=== PATIENT | male | born 1940 | race Caucasian/White ===

== ENCOUNTER 2017-09-07 21:42 | Observation (INO) ==
[2017-09-07] MEDS ORDERED: ONDANSETRON 4 MG/2 ML VIAL IV STA (22:26)
[2017-09-07] MEDS ORDERED: SODIUM CHLORIDE 0.9% 1,000 ML IV STA (22:26)
[2017-09-07] MEDS ORDERED: MORPHINE 4 MG/1 ML VIAL IV STA (22:26)
[2017-09-07] MEDS ORDERED: MORPHINE 4 MG/1 ML VIAL ONE (22:42)
[2017-09-07] MEDS ORDERED: ONDANSETRON 4 MG/2 ML VIAL ONE (22:42)
[2017-09-07 22:45] LABS: Basophils % 0.6 % (0.0-0.8); Eosinophils % 0.4 % (0.00-10.9); Hematocrit 31.9 VOL% (42.0-52.0); Hemoglobin 10.6 GM/DL (14.0-18.0); Immature Granulocytes % 1.2 %; Immature Granulocytes Absolute 0.06 #; Lymphocytes # 0.8 10*3/uL (1.4-4.0); Lymphocytes % 16.1 % (21.2-54.2); Mean Corpuscular HGB Conc 33.2 GM/DL (32-36); Mean Corpuscular Hemoglobin 32 PG (27-34); Mean Corpuscular Volume 97.3 FL (87-102); Mean Platelet Volume 11.4 FL (9.6-12.0); Monocytes # 0.5 10*3/uL (0.11-0.8); Monocytes % 8.9 % (1.7-12.7); Neutrophils # 3.8 10*3/uL (1.4-7.4); Neutrophils % 72.8 % (38.7-73.9); Platelet Count 224 T/CUMM (130-400); Red Blood Count 3.28 MC/CUMM (3.8-5.5); Red Cell Distribution Width 13.3 % (9.3-17.3); White Blood Count 5.2 T/CUMM (4-12)
[2017-09-07 23:09] LABS: Lactic Acid 1.9 MMOL/L (0.4-2.0)
[2017-09-07 23:16] LABS: Alanine Aminotransferase 20 U/L (16-61); Albumin 3.2 G/DL (3.4-5.0); Alkaline Phosphatase 55 U/L (45-117); Amylase 33 U/L (25-115); Aspartate Amino Transferase 21 U/L (0-37); Blood Urea Nitrogen 20 MG/DL (7-18); Calcium 8.7 MG/DL (8.5-10.1); Glucose 240 MG/DL (74-106); Potassium 3.6 MMOL/L (3.5-5.1); Sodium 136 MMOL/L (136-145); Total Protein 5.9 G/DL (6.4-8.3); Troponin I Only < 0.015 NG/ML (0.00-0.045)
[2017-09-08 00:17] LABS: Apearance,Urine CLEAR (Clear); Bilirubin,Urine Negative (Negative); Blood, Urine Negative (Negative); Glucose,Urine (UA) 50 mg/dL (Negative); Ketones,Urine Negative (Negative); Nitrite,Urine Negative (Negative); Protein,Urine Negative; RBC,Urine <1 /HPF (0-4); Urine Color Yellow (Yellow); Urine Specific Gravity 1.014 (1.001-1.035); Urine Urobilinogen < 2.0 EU/DL (0.2-1.0); WBC,Urine <1 /HPF (0-6)
[2017-09-08] MEDS ORDERED: MORPHINE 4 MG/1 ML VIAL IV STA (00:35)
[2017-09-08] MEDS ORDERED: MORPHINE 4 MG/1 ML VIAL ONE (00:38)
[2017-09-08] MEDS ORDERED: ONDANSETRON 4 MG/2 ML VIAL IV PRN (00:52)
[2017-09-08] MEDS ORDERED: BENZTROPINE 2 MG/2 ML AMP IV PRN (00:52)
[2017-09-08] MEDS ORDERED: diphenhydrAMINE CAP 25 MG CAPSULE PO PRN (00:52)
[2017-09-08] MEDS ORDERED: traMADol 50 MG TABLET PO PRN (00:52)
[2017-09-08] MEDS ORDERED: DEXTROSE 50% 25 GM/50 ML VIAL IV PRN (00:52)
[2017-09-08] MEDS ORDERED: ALUMINUM/MAGNES/SIMETH MAX STR 30 ML UDCUP PO PRN (00:52)
[2017-09-08] MEDS ORDERED: PROMETHAZINE INJ 25 MG in SODIUM CHLORIDE 0.9% 50 ML IV PRN (00:52)
[2017-09-08] MEDS ORDERED: chlorproMAZINE 25 MG TABLET PO PRN (00:52)
[2017-09-08] MEDS ORDERED: LACTULOSE 20 GM/30 ML UDCUP PO PRN (00:52)
[2017-09-08] MEDS ORDERED: MYLANTA/LIDO VISC 2:1 300 ML BOTTLE SWISH/SWAL PRN (00:52)
[2017-09-08] MEDS ORDERED: guaiFENesin 200 MG/10 ML UDCUP PO PRN (00:52)
[2017-09-08] MEDS ORDERED: MYLANTA/LIDO VISC 2:1 300 ML BOTTLE SWISH/SPIT PRN (00:52)
[2017-09-08] MEDS ORDERED: ACETAMINOPHEN 325 MG TABLET PO PRN (00:52)
[2017-09-08] MEDS ORDERED: MAGNESIUM HYDROXIDE SUSP 30 ML UDCUP PO PRN (00:52)
[2017-09-08] MEDS ORDERED: GLUCAGON 1 MG VIAL IM PRN (00:52)
[2017-09-08] MEDS ORDERED: SODIUM CHLORIDE 0.9% 1,000 ML IV SCH (01:00)
[2017-09-08 02:39] LABS: Albumin 3.1 G/DL (3.4-5.0); Bilirubin,Total 0.4 MG/DL (0.2-1.0); Calcium 8.2 MG/DL (8.5-10.1); Osmolality,Calculated 282.4 MOS/KG (273-304); Potassium 3.8 MMOL/L (3.5-5.1); Total Protein 5.6 G/DL (6.4-8.3)
[2017-09-08] MEDS ORDERED: DOCUSATE SODIUM 100 MG CAPSULE PO PRN (08:39)
[2017-09-08] MEDS: predniSONE 5 MG TABLET PO SCH ×2 (09:18→21:13)
[2017-09-08] MEDS: MULTIVITAMIN (CENTRUM) TABLET PO SCH (09:18)
[2017-09-08] MEDS: LISINOPRIL 10 MG TABLET PO SCH (09:18)
[2017-09-08] MEDS: GABAPENTIN 100 MG CAPSULE PO SCH ×3 (09:18→21:13)
[2017-09-08] MEDS: PANTOPRAZOLE 40 MG TABLET PO SCH (09:18)
[2017-09-08] MEDS: ASPIRIN EC 81 MG TABLET PO SCH (09:18)
[2017-09-08] MEDS: INSULIN REGULAR 100 UNIT/ML SUBCUT SCH ×4 (09:20→21:14)
[2017-09-08] MEDS: ALPRAZolam 0.25 MG TABLET PO PRN (15:43)
[2017-09-08] MEDS: oxyCODONE IR 5 MG TABLET PO PRN ×2 (15:43→21:13)
[2017-09-08] MEDS: MORPHINE 4 MG/1 ML VIAL IV PRN ×2 (19:41→23:38)
[2017-09-08] MEDS ORDERED: ENZALUTAMIDE 40 MG PO SCH (21:00)
[2017-09-08] MEDS: TEMAZEPAM 7.5 MG CAPSULE PO PRN ×2 (21:13→23:39)
[2017-09-09] MEDS: MORPHINE 4 MG/1 ML VIAL IV PRN ×2 (05:27→10:43)
[2017-09-09 08:33] VITALS: BP 93/50
[2017-09-09] MEDS: predniSONE 5 MG TABLET PO SCH (09:13)
[2017-09-09] MEDS: MULTIVITAMIN (CENTRUM) TABLET PO SCH (09:13)
[2017-09-09] MEDS: PANTOPRAZOLE 40 MG TABLET PO SCH (09:13)
[2017-09-09] MEDS: LISINOPRIL 10 MG TABLET PO SCH (09:13)
[2017-09-09] MEDS: GABAPENTIN 100 MG CAPSULE PO SCH (09:13)
[2017-09-09] MEDS: ASPIRIN EC 81 MG TABLET PO SCH (09:13)
[2017-09-09] MEDS: INSULIN REGULAR 100 UNIT/ML SUBCUT SCH (09:13)
[2017-09-09] MEDS: ALPRAZolam 0.25 MG TABLET PO PRN (10:44)
== END 2017-09-09 10:59 | disposition home or self-care (01) ==
LOC: EDUNIT# → EDBD → N.EDINP 21:42 → N.ED 21:42 → N.4E 09-08 00:59
PROVIDERS: ADMIT Specialist; ATTEND Specialist